=== PATIENT | female | born 1980 | race Caucasian/White ===

== ENCOUNTER 2024-02-25 13:41 | Emergency (ER) | payer OTHER ==
[~2024-02-25] VITALS: Ht 162.6 cm; Wt 120.5 kg
[2024-02-25 15:26] LABS: BASOPHILS # (AUTO) 0.1 X10'3 (0-0.2); BASOPHILS % (AUTO) 0.7 % (0-1); EOSINOPHILS # (AUTO) 0.1 X10'3 (0-0.9); EOSINOPHILS % (AUTO) 1.5 % (0-6); HEMATOCRIT 34.2 % (35.0-45.0); HEMOGLOBIN 10.7 g/dl (12.0-16.0); LYMPHOCYTES # (AUTO) 1.5 X10'3 (1.1-4.8); LYMPHOCYTES % (AUTO) 19.2 % (21-51); MEAN CORPUSCULAR HEMOGLOBIN 24.5 PG (27.0-31.0); MEAN CORPUSCULAR HGB CONC 31.3 g/dL (33.0-36.5); MEAN CORPUSCULAR VOLUME 78.2 FL (78-98); MEAN PLATELET VOLUME 7.6 FL (7.4-10.4); MONOCYTES # (AUTO) 0.6 X10'3 (0-0.9); NEUTROPHILS # (AUTO) 5.7 X10'3 (1.8-7.7); NEUTROPHILS % (AUTO) 71.6 % (42-75); PLATELET COUNT 267 X10'3 (140-440); RED BLOOD COUNT 4.37 X10'6 (4.20-5.60); RED CELL DISTRIBUTION WIDTH 19.8 % (11.5-14.5)
[2024-02-25 15:39] LABS: ALBUMIN 3.7 G/DL (3.4-5.0); ANION GAP 13 (8-16); BLOOD UREA NITROGEN 15 MG/DL (7-18); BUN/CREATININE RATIO 14.6 (10.0-20.0); CHLORIDE 107 MMOL/L (99-107); CREATININE 1.03 MG/DL (0.40-0.90); GLUCOSE 113 MG/DL (70-104); POTASSIUM 4.2 MMOL/L (3.5-5.1); SODIUM 137 MMOL/L (135-145); TOTAL CARBON DIOXIDE 17.2 MMOL/L (24-32); eCRCL 61 ML/MIN; eGFR 58 ML/MIN
[2024-02-25] MEDS: normal saline 1000ml 1,000 ML IV ONE ×2 (16:20→17:08)
[2024-02-25] MEDS: LORazepam 2 mg/ml vial IV ONE (16:23)
[2024-02-25] MEDS: proCHLORperazine 10 MG/2 ml inj IV ONE (16:24)
[2024-02-25] MEDS: diphenhydrAMINE 50 mg/ml inj IV ONE (16:26)
[2024-02-25] MEDS: morphine 4 MG/ML inj SYRINge IV ONE (16:29)
[2024-02-25 17:14] VITALS: BP 146/85; PULSE 101; RESP 18; TEMP 98.6; O2SAT 98
== END 2024-02-25 17:15 | disposition home or self-care (01) ==
LOC: ER 13:42
DX: R51.9 Headache, unspecified (principal); E86.0 Dehydration; B08.5 Enteroviral vesicular pharyngitis; Z88.8 Allergy status to other drugs, medicaments and biological substances; Z91.041 Radiographic dye allergy status
CPT/HCPCS: 80048; 85025; 96361; 96374; 96375; 99284; J0780; J1200; J2060; J2270; J7030

== ENCOUNTER 2024-03-29 10:16 | Emergency (ER) | payer OTHER ==
[~2024-03-29] VITALS: Ht 162.6 cm; Wt 128.8 kg
[2024-03-29] MEDS: proCHLORperazine 10 MG/2 ml inj IV ONE (11:30)
[2024-03-29] MEDS: diphenhydrAMINE 50 mg/ml inj IV ONE (11:30)
[2024-03-29] MEDS: normal saline 1000ML IV soln IVB ONE (11:31)
[2024-03-29 12:10] VITALS: TEMP 98.6
[2024-03-29 13:16] VITALS: BP 138/86; PULSE 87; RESP 14; O2SAT 97
== END 2024-03-29 13:19 | disposition home or self-care (01) ==
LOC: ER 10:16
DX: G43.909 Migraine, unspecified, not intractable, without status migrainosus (principal); H53.9 Unspecified visual disturbance; R42 Dizziness and giddiness; R11.0 Nausea; Z88.8 Allergy status to other drugs, medicaments and biological substances; Z88.5 Allergy status to narcotic agent; Z91.041 Radiographic dye allergy status; Z98.2 Presence of cerebrospinal fluid drainage device
CPT/HCPCS: 70450; 96361; 96374; 96375; 99285; J0780; J1200; J7030

== ENCOUNTER 2024-04-18 20:06 | Emergency (ER) | payer MEDICAID, OTHER ==
[~2024-04-18] VITALS: Ht 162.6 cm; Wt 135.2 kg
[~2024-04-18 20:06] MED LIST: PROC-8 PO
[2024-04-18] MEDS: LORazepam 1 MG tablet PO ONE (21:52)
[2024-04-18] MEDS: diphenhydrAMINE 25mg capsule PO ONE (21:52)
[2024-04-18 21:55] VITALS: BP 152/74; PULSE 90; RESP 18; TEMP 98.6; O2SAT 96
== END 2024-04-18 21:56 | disposition home or self-care (01) ==
LOC: ER 20:07
DX: R51.9 Headache, unspecified (principal); G47.00 Insomnia, unspecified; Z88.8 Allergy status to other drugs, medicaments and biological substances; Z79.899 Other long term (current) drug therapy
CPT/HCPCS: 99283; Q0163

== ENCOUNTER 2024-05-02 08:37 | Emergency (ER) | payer MEDICAID ==
[~2024-05-02] VITALS: Ht 162.6 cm; Wt 132.1 kg
[2024-05-02 08:56] VITALS: BP 161/97; PULSE 97; RESP 18; O2SAT 99
[2024-05-02] MEDS ORDERED: HYDR-3686 PO (10:05)
[2024-05-02] MEDS: LORazepam 1 MG tablet PO ONE (10:17)
[2024-05-02 10:18] VITALS: TEMP 97.8
== END 2024-05-02 10:23 | disposition home or self-care (01) ==
LOC: ER 08:37
DX: F41.9 Anxiety disorder, unspecified (principal); Z88.8 Allergy status to other drugs, medicaments and biological substances; Z79.899 Other long term (current) drug therapy
CPT/HCPCS: 99283

== ENCOUNTER 2024-05-10 08:44 | Emergency (ER) | payer MEDICAID ==
[~2024-05-10] VITALS: Ht 162.6 cm; Wt 127.3 kg
[~2024-05-10 08:44] MED LIST changes: +HYDR-3686 PO
[2024-05-10 08:47] VITALS: BP 143/89; PULSE 89; RESP 16; TEMP 97.6; O2SAT 100
[2024-05-10] MEDS ORDERED: ZONI100C42 PO (10:05)
[2024-05-10] MEDS ORDERED: ENOX40SY7 SUBCUT (10:05)
[2024-05-10] MEDS ORDERED: BUPR1FIL7 SL (10:05)
== END 2024-05-10 10:09 | disposition home or self-care (01) ==
LOC: ER 08:44
DX: F11.20 Opioid dependence, uncomplicated (principal); Z76.0 Encounter for issue of repeat prescription; Z88.8 Allergy status to other drugs, medicaments and biological substances; Z91.041 Radiographic dye allergy status; Z79.899 Other long term (current) drug therapy
CPT/HCPCS: 99281

== ENCOUNTER 2024-06-05 08:34 | Emergency (ER) | payer MEDICAID ==
[~2024-06-05] VITALS: Ht 162.6 cm; Wt 127.6 kg
[~2024-06-05 08:34] MED LIST changes: +BUPR1FIL7 SL; +ENOX40SY7 SUBCUT; +ZONI100C42 PO
[2024-06-05] MEDS: normal saline 1000ML IV soln IVB ONE (09:30)
[2024-06-05 10:19] LABS: BILIRUBIN,URINE NEGATIVE (Neg); CLARITY,URINE SLIGHTLY CLOUDY (Clear); COLOR,URINE YELLOW (Yellow); GLUCOSE, URINE NEGATIVE (Neg); KETONES,URINE TRACE mg/dl (Neg); LEUKOCYTE ESTERASE ,URINE NEGATIVE (Neg); NITRITES, URINE NEGATIVE (Neg); OCCULT BLOOD,URINE NEGATIVE (Neg); PH,URINE 6.5 (4.8-8.0); PROTEIN,URINE NEGATIVE (Neg)
[2024-06-05 10:20] LABS: BASOPHILS % (AUTO) 0.6 % (0-1); EOSINOPHILS % (AUTO) 0.4 % (0-6); HEMATOCRIT 35.4 % (35.0-45.0); HEMOGLOBIN 10.9 g/dl (12.0-16.0); LYMPHOCYTES # (AUTO) 1.3 X10'3 (1.1-4.8); LYMPHOCYTES % (AUTO) 17.2 % (21-51); MEAN CORPUSCULAR HEMOGLOBIN 22.7 PG (27.0-31.0); MEAN CORPUSCULAR VOLUME 73.2 FL (78-98); MEAN PLATELET VOLUME 7.6 FL (7.4-10.4); MONOCYTES # (AUTO) 0.5 X10'3 (0-0.9); MONOCYTES % (AUTO) 6.4 % (2-12); NEUTROPHILS # (AUTO) 5.8 X10'3 (1.8-7.7); NEUTROPHILS % (AUTO) 75.4 % (42-75); PLATELET COUNT 311 X10'3 (140-440); RED BLOOD COUNT 4.83 X10'6 (4.20-5.60); RED CELL DISTRIBUTION WIDTH 18.3 % (11.5-14.5); WHITE BLOOD COUNT 7.6 X10'3 (4.5-11.0)
[2024-06-05 10:24] LABS: UA COLLECTION TYPE CLN CATCH MIDSTREAM
[2024-06-05 10:25] LABS: MUCUS STRANDS MODERATE /LPF (Neg); SQUAMOUS EPITHELIAL CELL,UR MANY /LPF (FEW)
[2024-06-05 10:26] LABS: BACTERIA,URINE 2+ /HPF (Neg); RBC,URINE 0-2 /HPF (0-2); WBC,URINE 0-4 /HPF (0-4)
[2024-06-05 10:33] LABS: APTT 26 SECONDS (22-32); D-DIMER 0.54 MG/L FEU (0-0.50); INR 1.1 INR; PROTHROMBIN TIME 11.2 SECONDS (9.0-12.0)
[2024-06-05 10:35] LABS: ALANINE AMINOTRANSFERASE 20 U/L (12-78); ALBUMIN 3.8 G/DL (3.4-5.0); ALKALINE PHOSPHATASE 96 IU/L (46-116); ANION GAP 10 (8-16); ASPARTATE AMINO TRANSFERASE 16 U/L (10-37); BILIRUBIN,DIRECT 0.1 MG/DL (0-0.3); BILIRUBIN,TOTAL 0.4 MG/DL (0.1-1.0); BLOOD UREA NITROGEN 8 MG/DL (7-18); BUN/CREATININE RATIO 8.8 (10.0-20.0); CALCIUM 8.8 MG/DL (8.5-10.1); CHLORIDE 102 MMOL/L (99-107); CREATININE 0.91 MG/DL (0.40-0.90); GLUCOSE 95 MG/DL (70-104); LIPASE 49 U/L (16-77); MAGNESIUM 2.1 MG/DL (1.5-2.4); POTASSIUM 3.7 MMOL/L (3.5-5.1); SODIUM 133 MMOL/L (135-145); TOTAL CARBON DIOXIDE 21.3 MMOL/L (24-32); TOTAL PROTEIN 7.8 G/DL (6.4-8.2); eCRCL 69 ML/MIN; eGFR 67 ML/MIN
[2024-06-05] MEDS: proCHLORperazine 10 MG/2 ml inj IM ONE (10:55)
[2024-06-05] MEDS ORDERED: ZONI100C42 PO (14:10)
[2024-06-05] MEDS ORDERED: BUPR1FIL3 SL (14:10)
[2024-06-05] MEDS ORDERED: PROC-8 PO (14:10)
[2024-06-05] MEDS ORDERED: ENOX40SY7 SUBCUT (14:10)
[2024-06-05 14:19] VITALS: BP 134/98; PULSE 86; RESP 14; TEMP 98.2; O2SAT 100
== END 2024-06-05 14:20 | disposition home or self-care (01) ==
LOC: ER 08:34
DX: R11.2 Nausea with vomiting, unspecified (principal); D68.59 Other primary thrombophilia; G93.2 Benign intracranial hypertension; Z88.8 Allergy status to other drugs, medicaments and biological substances; Z91.041 Radiographic dye allergy status; Z79.899 Other long term (current) drug therapy
CPT/HCPCS: 36415; 74176; 80048; 80076; 81001; 83690; 83735; 85025; 85379; 85610; 85730; 93005; 96372; 99285; J0780; J7030; A6250

== ENCOUNTER 2024-09-13 02:48 | Emergency (ER) | payer MEDICAID ==
[~2024-09-13] VITALS: Ht 162.6 cm; Wt 132.0 kg
[2024-09-13 02:48] VITALS: BP 135/89; PULSE 104; RESP 16; TEMP 98; O2SAT 99
[~2024-09-13 02:48] MED LIST changes: +BUTA-245 PO
[2024-09-13] MEDS ORDERED: dexamethasone sod phosphate 10mg/ml inj IM STA (02:57)
[2024-09-13] MEDS ORDERED: diphenhydrAMINE 50 mg/ml inj IM ONE (03:00)
[2024-09-13] MEDS ORDERED: butalbital 50MG/acetaminophen 300MG/caffeine 40MG (Fioricet) CAPSULE PO ONE (03:00)
[2024-09-13] MEDS ORDERED: proCHLORperazine 10 MG/2 ml inj IM ONE (03:00)
[2024-09-13] MEDS ORDERED: enoxaparin 100mg/ml syringe SUBCUT ONE (03:05)
== END 2024-09-13 03:12 | disposition home or self-care (01) ==
LOC: ER 02:48
DX: G44.89 Other headache syndrome (principal); G93.2 Benign intracranial hypertension; Z91.041 Radiographic dye allergy status; Z88.8 Allergy status to other drugs, medicaments and biological substances; Z79.52 Long term (current) use of systemic steroids; Z79.899 Other long term (current) drug therapy
CPT/HCPCS: 99281